=== PATIENT | female | born 1985 | race Caucasian/White ===

== ENCOUNTER → 2017-07-17 | Outpatient (CLI) | payer OTHER ==
[~2017-07-17] MED LIST: GASTROGRAFIN SOLUTION 30ML (Q9963) As Ordered; ISOVUE-370 76% 100ML VIAL (Q9967) As Ordered
== END ==
LOC: M RAD 14:00
DX: R10.12 Left upper quadrant pain (principal); R19.09 Other intra-abdominal and pelvic swelling, mass and lump